=== PATIENT | female | born 1990 | race Two or more races ===

== ENCOUNTER 2023-11-03 07:15 | Inpatient (IN) | payer OTHER ==
[~2023-11-03] VITALS: Ht 165.1 cm; Wt 58.1 kg
[2023-11-03] MEDS ORDERED: PREVACID15 M1 PO (07:48)
[2023-11-03 08:21] LABS: HEMATOCRIT 36.9 % (36.0-45.00); HEMOGLOBIN 12.7 g/dL (12.0-15.00); MEAN CELL VOLUME 100.3 fL (80.00-100.00); MEAN CORPUSCULAR HEMOGLOBIN 34.6 pg (27.00-32.0); MEAN CORPUSCULAR HGB CONC 34.5 g/dl (32.0-36.0); PLATELET COUNT 220 K/uL (150-450); RED BLOOD COUNT 3.68 M/uL (4.00-6.00); RED CELL DISTRIBUTION WIDTH 12.2 % (11.5-14.5)
[2023-11-03 08:40] LABS: INR 1.04; PARTIAL THROMBOPLASTIN TIME 28.1 SECONDS (22.0-34.0); PROTHROMBIN TIME 10.9 SECONDS (9.0-11.5)
[2023-11-03 08:52] LABS: ALBUMIN 4.2 gm/dL (3.4-5.0); BILIRUBIN TOTAL 0.8 mg/dL (0.3-1.2); CALCIUM 9.1 mg/dL (8.5-10.1); CREATININE SERUM 0.65 mg/dL (0.55-1.02); GFR 103.72; GLOBULINA 3.5 G/DL (2.4-3.5); POTASSIUM 3.65 mEq/L (3.5-5.1); TOTAL PROTEIN 7.7 gm/dL (6.4-8.2)
[2023-11-10] MEDS ORDERED: CEFOXITIN SODIUM 2,000 MG VIAL IV ONE ×2 (07:17→10:30)
[2023-11-10] MEDS ORDERED: RINGERS SOLUTION,LACTATED 1,000 ML IV SCH (11:00)
[2023-11-10] MEDS ORDERED: KETOROLAC TROMETHAMINE 30 MG VIAL IM ONE (11:00)
[2023-11-10] MEDS ORDERED: ONDANSETRON HCL 2 MG/ML VIAL ONE (11:53)
[2023-11-10] MEDS ORDERED: KETOROLAC TROMETHAMINE 30 MG VIAL ONE (12:40)
[2023-11-10] MEDS ORDERED: PROMETHAZINE HCL 25 MG/ML AMPUL IM SCH (13:00)
[2023-11-10] MEDS ORDERED: MEPERIDINE HCL/PF 50 MG,MEPERIDINE HCL/PF 25 MG IM SCH (13:00)
[2023-11-10] MEDS ORDERED: PROMETHAZINE HCL 25 MG/ML AMPUL ONE (14:46)
[2023-11-10 14:54] LABS: HEMATOCRIT 37.4 % (36.0-45.00); MEAN CELL VOLUME 100.2 fL (80.00-100.00); MEAN CORPUSCULAR HEMOGLOBIN 34.9 pg (27.00-32.0); MEAN CORPUSCULAR HGB CONC 34.8 g/dl (32.0-36.0); PLATELET COUNT 188 K/uL (150-450); RED BLOOD COUNT 3.73 M/uL (4.00-6.00); RED CELL DISTRIBUTION WIDTH 12.1 % (11.5-14.5)
[2023-11-10] MEDS ORDERED: CEFAZOLIN SODIUM 1,000 MG VIAL IV SCH (17:00)
[2023-11-10] MEDS ORDERED: KETOROLAC TROMETHAMINE 10 MG TABLET PO SCH (18:00)
[2023-11-11 07:05] LABS: HEMATOCRIT 33.4 % (36.0-45.00); HEMOGLOBIN 11.7 g/dL (12.0-15.00); MEAN CELL VOLUME 100.3 fL (80.00-100.00); MEAN CORPUSCULAR HEMOGLOBIN 35.1 pg (27.00-32.0); PLATELET COUNT 175 K/uL (150-450); RED BLOOD COUNT 3.33 M/uL (4.00-6.00); RED CELL DISTRIBUTION WIDTH 12.3 % (11.5-14.5)
[2023-11-11] MEDS ORDERED: ACETAMINOPHEN WITH CODEINE 1 UDTAB TABLET PO SCH (09:00)
[2023-11-12] MEDS ORDERED: KETO10TA2 PO (07:24)
[2023-11-12] MEDS ORDERED: ACETAMINOPHEN-1 EAC2 PO (07:24)
== END 2023-11-12 09:16 | disposition home or self-care (01) | DRG 743 ==
LOC: O/R 11-10 06:18 → OB/GYN 11-10 06:18
PROVIDERS: ADMIT Obstetrics & Gynecology Maternal & Fetal Medicine; ATTEND Obstetrics & Gynecology Maternal & Fetal Medicine
PROC: 0UB90ZZ Excision of Uterus, Open Approach (ICD-10-PCS; 2023-11-10)
PROC: 0UVC7ZZ Restriction of Cervix, Via Natural or Artificial Opening (ICD-10-PCS; principal; 2023-11-10 10:00)
DX: N88.3 Incompetence of cervix uteri (principal); D25.9 Leiomyoma of uterus, unspecified; Z20.822 Contact with and (suspected) exposure to COVID-19

== ENCOUNTER 2025-02-21 06:09 | Day surgery (SDC) | payer OTHER ==
[2025-02-15 11:51] LABS: BASO % 0.3 % (0.1-1.2); EOS # 0.04 (0.04-0.54); EOS % 1.1 % (0.7-7.0); HEMATOCRIT 36.5 % (34.1-44.9); HEMOGLOBIN 12.6 g/dL (11.2-15.7); LYMPH # 1.51 (1.18-3.74); LYMPH % 40.4 % (19.3-53.1); MEAN CORPUSCULAR HEMOGLOBIN 34.4 pg (25.6-32.2); MONO # 0.36 (0.24-0.82); MONO % 9.6 % (4.7-12.5); NEUT % 48.1 % (34.0-71.1); PLATELET COUNT 216 K/uL (163-369); RED BLOOD COUNT 3.66 M/uL (3.93-5.22); RED CELL DISTRIBUTION WIDTH 11.1 % (11.6-14.4)
[2025-02-15 12:38] LABS: INR 1.05; PARTIAL THROMBOPLASTIN TIME 26.8 SECONDS (22.0-34.0); PROTHROMBIN TIME 11.4 SECONDS (9.0-11.5)
[2025-02-15 12:54] VITALS: BP 117/75
[2025-02-15 13:06] LABS: ALBUMIN 3.9 gm/dL (3.4-5.0); BILIRUBIN TOTAL 0.75 mg/dL (0.3-1.2); CALCIUM 9.3 mg/dL (8.5-10.1); CREATININE SERUM 0.73 mg/dL (0.55-1.02); GFR 90.21; GLOBULINA 3.8 G/DL (2.4-3.5); POTASSIUM 3.98 mEq/L (3.5-5.1); TOTAL PROTEIN 7.7 gm/dL (6.4-8.2)
[~2025-02-21] VITALS: Ht 165.1 cm; Wt 59.0 kg
[~2025-02-21 06:09] MED LIST: ACETAMINOPHEN-1 EAC2 PO; KETO10TA2 PO; PREVACID15 M1 PO
[2025-02-21] MEDS ORDERED: CEFAZOLIN SODIUM 1,000 MG VIAL ONE (08:09)
[2025-02-21] MEDS ORDERED: POVIDONE-IODINE 118 ML BOTT TOP ONE (09:03)
[2025-02-21] MEDS ORDERED: METHYLENE BLUE 50MG/10ML AMP IV ONE (10:15)
[2025-02-21] MEDS ORDERED: SUGAMMADEX SODIUM 200 MG/2 ML VIAL IV ONE (11:19)
[2025-02-21] MEDS ORDERED: PROMETHAZINE HCL 50 MG/ML AMPUL IM ONE (11:30)
[2025-02-21] MEDS ORDERED: MORPHINE SULFATE 4 MG/ML VIAL IV PRN (11:30)
[2025-02-21] MEDS ORDERED: MORPHINE SULFATE 4 MG/ML VIAL IV ONE ×2 (12:00→13:15)
== END 2025-02-21 15:45 | disposition home or self-care (01) ==
LOC: CIR.AMB 06:09
PROVIDERS: ATTEND Obstetrics & Gynecology
DX: N73.6 Female pelvic peritoneal adhesions (postinfective) (principal); N97.9 Female infertility, unspecified; R10.2 Pelvic and perineal pain; N85.8 Other specified noninflammatory disorders of uterus